=== PATIENT | female | born 1960 | race Caucasian/White ===

== ENCOUNTER → 2017-02-06 | Outpatient (CLI) | payer OTHER ==
[~2017-02-06] MED LIST: XANAX0.25 MG PO; ZETIA10 MG PO
== END | disposition home or self-care (01) ==
LOC: MAMMO 07:54
DX: Z12.31 Encounter for screening mammogram for malignant neoplasm of breast (principal)

== ENCOUNTER → 2017-02-26 | Outpatient (CLI) | payer OTHER | END | disposition home or self-care (01) | LOC: MAMMO 12:39 | DX: R92.1 Mammographic calcification found on diagnostic imaging of breast (principal) ==

== ENCOUNTER → 2017-04-26 | Day surgery (SDC) | payer OTHER ==
[~2017-04-26] MED LIST changes: +ZOCOR10 MG PO
--- NOTE | ~2017-04-26 | PROC NOTE ---
[place], [place] PROCEDURE NOTE NAME: DUNCAN BOLTON UNIT #: [id number] ROOM: DOCTOR: GERONIMO GARCIA MD BIRTHDATE: [birth year] DOS: 04/26/2017 PREOPERATIVE DIAGNOSIS: Migrated right breast marker. POSTOPERATIVE DIAGNOSIS: Migrated right breast marker. PROCEDURE: Excision of right breast foreign body (marker). SURGEON: Geronimo Garcia MD PORTABLE PINCH RIVETER: RITA. ANESTHESIA: Local (5 mL of 1% plain lidocaine). INDICATIONS: This is a 57-year-old lady who recently approximately 2 months ago had a mammogram and a marker placed, which seems to have migrated just below her skin at approximately 11-12 o'clock position on the right breast in the mid upper quadrant. She desires excision. The procedure and its complications were explained to the patient in detail preoperatively. Complications that were discussed included but were not limited to bleeding, infection, and hematomas formation. She agreed to proceed. DESCRIPTION OF PROCEDURE: After identifying the patient, the patient was brought to the operating suite and laid in the supine position. After time-out procedure was called, the parts were painted and draped in the usual sterile fashion. Local anesthesia was infiltrated around the area of the marker that was being felt right under the skin. Approximately 5 mL of 1% plain lidocaine was injected in an elliptical fashion. An incision was made around the previous marker site and this was excised in its entirety and sent for histopathological diagnosis. Upon further probing the wound, there was no obvious foreign body that could be seen or felt. At this point, hemostasis was achieved with the help of pressure and by approximating the subcutaneous tissue with the help of 3-0 Vicryl in an interrupted fashion, the skin edges were approximated with the help of 4-0 Vicryl in a subcuticular fashion. Dressing was placed. The patient tolerated the procedure well and was brought back to the recovery room in stable fashion. There were no complications. Dr. Geronimo Garcia, the attending surgeon, was present throughout the operating case. [place], [place] PROCEDURE NOTE NAME: DUNCAN BOLTON UNIT #: [id number] ROOM: DOCTOR: GERONIMO GARCIA MD BIRTHDATE: [birth year] Geronimo Garcia MD CM:PHILIPP:PROCEDURE NOTE 3 2 GERONIMO GARCIA MD
[2017-04-26 07:34] VITALS: BP 124/69
[2017-04-26 07:50] VITALS: BP 148/86
[2017-04-26 08:00] VITALS: BP 126/77
== END | disposition home or self-care (01) ==
LOC: SDC 04-25 13:15
DX: T85.42XA Displacement of breast prosthesis and implant, initial encounter (principal); E78.00 Pure hypercholesterolemia, unspecified; G47.30 Sleep apnea, unspecified; Z90.710 Acquired absence of both cervix and uterus; Y83.8 Other surgical procedures as the cause of abnormal reaction of the patient, or of later complication, without mention of misadventure at the time of the procedure; Y92.89 Other specified places as the place of occurrence of the external cause

== ENCOUNTER → 2017-10-23 | Outpatient (CLI) | payer OTHER ==
[2017-10-23 08:00] LABS: BASO # 0.1 10*3/uL (0.0-0.1); BASO % 1.2 % (0.0-1.0); EOS # 0.1 10*3/uL (0.0-0.4); EOS % 1.2 % (1.0-4.0); HEMATOCRIT 40.6 % (37.0-47.0); HEMOGLOBIN 13.6 g/dl (12.0-16.0); LYMPH # 1.4 10*3/uL (1.3-4.4); LYMPH % 33.9 % (27.0-41.0); MEAN CELL VOLUME 89.8 fl (81.0-99.0); MEAN CORPUSCULAR HGB 30.1 pg (27.0-31.0); MEAN CORPUSCULAR HGB CONC 33.5 g/dl (33.0-37.0); MEAN PLATELET VOLUME 9.8 fl (9.6-12.3); MONO # 0.3 10*3/uL (0.1-1.0); MONO % 7.2 % (3.0-9.0); NEUT # 2.3 10*3/uL (2.3-7.9); NEUT % 56.3 % (47.0-73.0); PLATELET COUNT AUTOMATED 311 10*3/uL (130-400); RED BLOOD COUNT 4.52 10*6/uL (4.10-5.10); RED CELL DISTRI WIDTH 12.9 % (0-14.5); WHITE BLOOD COUNT 4.2 10*3/uL (4.8-10.8)
[2017-10-23 08:26] LABS: ALBUMIN 3.9 gm/dl (3.1-4.5); BUN 18 mg/dl (7-24); CHLORIDE 105 mmol/L (98-107); CHOLESTEROL 269 mg/dL (<200); CREATININE 0.75 mg/dL (0.55-1.02); HDL CHOLESTEROL 61 mg/dl (40-60); LDL CHOLESTEROL 178 mg/dL (9-159); POTASSIUM 4.2 mmol/L (3.5-5.1); SGOT/AST 33 IU/L (3-35); SGPT/ALT 60 U/L (12-78); SODIUM 141 mmol/L (136-145); TOTAL PROTEIN 7.7 gm/dL (6.4-8.2); TRIGLYCERIDES 151 mg/dl (<150); VLDL CHOLESTEROL 30 mg/dL (6-40)
[2017-10-23 08:36] LABS: ALKALINE PHOSPHATASE 61 U/L (45-117); THYROID STIM HORMONE (HS) 0.833 uIU/ml (0.358-4.75)
== END | disposition home or self-care (01) ==
LOC: LAB 07:17
PROVIDERS: Internal Medicine Cardiovascular Disease
DX: I49.3 Ventricular premature depolarization (principal); R00.2 Palpitations; E04.1 Nontoxic single thyroid nodule; R07.89 Other chest pain

== ENCOUNTER → 2017-11-06 | Outpatient (CLI) | payer OTHER | END | disposition home or self-care (01) | LOC: RESCLI 03:38 | DX: E78.2 Mixed hyperlipidemia (principal); K63.5 Polyp of colon; F41.9 Anxiety disorder, unspecified; R00.2 Palpitations; Z76.89 Persons encountering health services in other specified circumstances; Z90.710 Acquired absence of both cervix and uterus ==

== ENCOUNTER → 2018-01-24 | Outpatient (CLI) | payer OTHER ==
[2018-01-24 08:40] LABS: CHOLESTEROL 307 mg/dL (<200); HDL CHOLESTEROL 67 mg/dl (40-60); LDL CHOLESTEROL 218 mg/dL (9-159); TRIGLYCERIDES 112 mg/dl (<150); VLDL CHOLESTEROL 22 mg/dL (6-40)
== END | disposition home or self-care (01) ==
LOC: LAB 07:20
PROVIDERS: Internal Medicine
DX: E78.2 Mixed hyperlipidemia (principal)

== ENCOUNTER → 2018-04-28 | Outpatient (CLI) | payer OTHER | END | disposition home or self-care (01) | DX: R06.02 Shortness of breath (principal) ==

== ENCOUNTER → 2018-05-29 | Outpatient (CLI) | payer OTHER | END | disposition home or self-care (01) | LOC: MAMMO 07:08 | DX: Z12.31 Encounter for screening mammogram for malignant neoplasm of breast (principal) ==

== ENCOUNTER → 2019-01-27 | Outpatient (CLI) | payer OTHER ==
[2019-01-27 09:14] LABS: BASO # 0.1 10*3/uL (0.0-0.1); BASO % 1.1 % (0.0-1.0); EOS # 0.1 10*3/uL (0.0-0.4); EOS % 1.1 % (1.0-4.0); HEMATOCRIT 38.3 % (37.0-47.0); HEMOGLOBIN 13.1 g/dl (12.0-16.0); LYMPH # 1.6 10*3/uL (1.3-4.4); LYMPH % 34.7 % (27.0-41.0); MEAN CELL VOLUME 88.5 fl (81.0-99.0); MEAN CORPUSCULAR HGB 30.3 pg (27.0-31.0); MEAN CORPUSCULAR HGB CONC 34.2 g/dl (33.0-37.0); MEAN PLATELET VOLUME 9.7 fl (9.6-12.3); MONO # 0.4 10*3/uL (0.1-1.0); MONO % 7.6 % (3.0-9.0); NEUT # 2.6 10*3/uL (2.3-7.9); NEUT % 55.3 % (47.0-73.0); PLATELET COUNT AUTOMATED 296 10*3/uL (130-400); RED BLOOD COUNT 4.33 10*6/uL (4.10-5.10); RED CELL DISTRI WIDTH 12.6 % (0-14.5); WHITE BLOOD COUNT 4.6 10*3/uL (4.8-10.8)
[2019-01-27 09:42] LABS: ALBUMIN 3.7 gm/dl (3.1-4.5); BUN 13 mg/dl (7-24); CHLORIDE 106 mmol/L (98-107); CHOLESTEROL 299 mg/dL (<200); CREATININE 0.68 mg/dL (0.55-1.02); HDL CHOLESTEROL 56 mg/dl (40-60); LDL CHOLESTEROL 206 mg/dL (9-159); SGOT/AST 21 IU/L (3-35); SGPT/ALT 51 U/L (12-78); SODIUM 140 mmol/L (136-145); TOTAL PROTEIN 7.3 gm/dL (6.4-8.2); TRIGLYCERIDES 184 mg/dl (<150); VLDL CHOLESTEROL 37 mg/dL (6-40)
[2019-01-27 09:52] LABS: ALKALINE PHOSPHATASE 65 U/L (45-117)
== END | disposition home or self-care (01) ==
LOC: LAB 08:41
PROVIDERS: Family Medicine
DX: E78.5 Hyperlipidemia, unspecified (principal); R53.83 Other fatigue

== ENCOUNTER → 2019-02-19 | Outpatient (CLI) | payer OTHER ==
--- NOTE | ~2019-02-19 | PF ---
[place], [place] PULMONARY FUNCTION TEST NAME: DUNCAN BOLTON UNIT #: [id number] ROOM: DOCTOR: ROSETTA GUSTAFSON MD,CARMEN BIRTHDATE: [birth year] DOS: 02/19/2019 ORDERED BY: Dr. Fox Birch. HISTORY: This patient was recorded as 58-year-old female, height of 67 inches, weight of 188 pounds, BMI 29.4. Testing was done for the patient's assessment of symptoms of shortness of breath with exertion. The patient noted tobacco use 1 pack of cigarettes per day for 25 years, discontinued 14 years ago. SPIROMETRY: The FVC ____ liters, 108% predicted value, FEV1 2.86 liters, 101% predicted value. Ratio of FEV1/FVC recorded 77%. Flow volume loop was normal. Postbronchodilator, no changes were noted. LUNG VOLUME: Thoracic gas volume recorded as 87%, residual volume 97%, total lung capacity 98%. The patient's airway resistance and passive conductance normal. The patient's lung diffusion noted mildly decreased. FINAL IMPRESSION: Evidence of a very mild reduction of the lung diffusion noted, to be correlated with the patient's clinical history and radiology data. Otherwise, the pulmonary function tests were noted completely normal. CARMEN SARGENT MD CM:PFREPORT:PULMONARY FUNCTION TEST [id number] CARMEN GUSTAFSON MD
== END | disposition home or self-care (01) ==
LOC: CP 14:27
DX: R06.00 Dyspnea, unspecified (principal); Z87.891 Personal history of nicotine dependence

== ENCOUNTER → 2019-04-23 | Outpatient (CLI) | payer OTHER | END | disposition home or self-care (01) | LOC: RAD 09:18 | DX: M79.672 Pain in left foot (principal); W18.31XA Fall on same level due to stepping on an object, initial encounter ==

== ENCOUNTER → 2019-06-04 | Outpatient (CLI) | payer OTHER | END | disposition home or self-care (01) | LOC: US 10:27 | DX: N64.4 Mastodynia (principal) ==

== ENCOUNTER → 2019-06-18 | Outpatient (CLI) | payer OTHER | END | disposition home or self-care (01) | LOC: MAMMO 06-11 10:00 | DX: N64.4 Mastodynia (principal) ==

== ENCOUNTER → 2019-06-30 | Outpatient (CLI) | payer OTHER | END | disposition home or self-care (01) | LOC: RESCLI 10:25 | DX: M54.41 Lumbago with sciatica, right side (principal); E66.3 Overweight; E04.1 Nontoxic single thyroid nodule; F41.9 Anxiety disorder, unspecified; Z90.710 Acquired absence of both cervix and uterus; Z90.89 Acquired absence of other organs ==

== ENCOUNTER → 2019-07-10 | Outpatient (CLI) | payer OTHER | END | disposition home or self-care (01) | LOC: US 13:12 | DX: E04.1 Nontoxic single thyroid nodule (principal) ==

== ENCOUNTER → 2019-07-28 | Outpatient (CLI) | payer OTHER ==
[2019-07-28 09:39] LABS: ALBUMIN 3.7 gm/dl (3.1-4.5); ALKALINE PHOSPHATASE 63 U/L (45-117); BUN 15 mg/dl (7-24); CHLORIDE 107 mmol/L (98-107); CREATININE 0.71 mg/dL (0.55-1.02); FREE T4 0.95 ng/dl (0.76-1.46); POTASSIUM 4.2 mmol/L (3.5-5.1); SGOT/AST 16 IU/L (3-35); SGPT/ALT 28 U/L (12-78); SODIUM 142 mmol/L (136-145); TOTAL PROTEIN 7.2 gm/dL (6.4-8.2)
[2019-07-29 06:05] LABS: THYROID PEROXIDASE (TPO) AB 9 IU/mL (0-34)
[2019-07-29 15:10] LABS: THYROGLOBULIN ANTIBODY <1.0 IU/mL (0.0-0.9)
== END | disposition home or self-care (01) ==
LOC: LAB 08:04
PROVIDERS: Internal Medicine Endocrinology, Diabetes & Metabolism
DX: E04.1 Nontoxic single thyroid nodule (principal); E55.9 Vitamin D deficiency, unspecified

== ENCOUNTER → 2019-11-23 | Outpatient (CLI) | payer OTHER ==
[2019-11-23 10:06] LABS: ALBUMIN 3.8 gm/dl (3.1-4.5); BUN 17 mg/dl (7-24); CHLORIDE 106 mmol/L (98-107); CHOLESTEROL 279 mg/dL (<200); CREATININE 0.69 mg/dL (0.55-1.02); SGOT/AST 44 IU/L (3-35); SGPT/ALT 101 U/L (12-78); SODIUM 140 mmol/L (136-145); TRIGLYCERIDES 229 mg/dl (<150); VLDL CHOLESTEROL 46 mg/dL (6-40)
[2019-11-23 10:13] LABS: ALKALINE PHOSPHATASE 70 U/L (45-117); FREE T4 1.02 ng/dl (0.76-1.46); HDL CHOLESTEROL 55 mg/dl (40-60); LDL CHOLESTEROL 178 mg/dL (9-159); THYROID STIM HORMONE (HS) 0.972 uIU/ml (0.358-4.75); TOTAL PROTEIN 7.6 gm/dL (6.4-8.2)
[2019-11-24 04:06] LABS: THYROID PEROXIDASE (TPO) AB <9 IU/mL (0-34)
[2019-11-24 15:10] LABS: LIPOPROTEIN A 12.9 nmol/L (<75.0); THYROGLOBULIN ANTIBODY <1.0 IU/mL (0.0-0.9)
[2019-11-25 08:08] LABS: APOLIPOPROTEIN B 132 mg/dL (<90)
== END | disposition home or self-care (01) ==
LOC: LAB 08:54
PROVIDERS: Internal Medicine Endocrinology, Diabetes & Metabolism
DX: E04.1 Nontoxic single thyroid nodule (principal); E55.9 Vitamin D deficiency, unspecified; E78.2 Mixed hyperlipidemia; R63.5 Abnormal weight gain

== ENCOUNTER → 2020-01-15 | Outpatient (CLI) | payer OTHER | END | disposition home or self-care (01) | LOC: US 08:28 | PROVIDERS: ATTEND Nurse Practitioner Primary Care | DX: K80.20 Calculus of gallbladder without cholecystitis without obstruction (principal); Z90.710 Acquired absence of both cervix and uterus ==

== ENCOUNTER → 2020-01-28 | Outpatient (CLI) | payer OTHER ==
[2020-01-28 14:20] LABS: ALBUMIN 3.9 gm/dl (3.1-4.5); BUN 17 mg/dl (7-24); CHLORIDE 105 mmol/L (98-107); CREATININE 0.93 mg/dL (0.55-1.02); POTASSIUM 3.7 mmol/L (3.5-5.1); SGOT/AST 16 IU/L (3-35); SGPT/ALT 34 U/L (12-78); SODIUM 140 mmol/L (136-145)
[2020-01-28 14:21] LABS: ALKALINE PHOSPHATASE 59 U/L (45-117); TOTAL PROTEIN 7.3 gm/dL (6.4-8.2)
== END | disposition home or self-care (01) ==
LOC: LAB 13:16
PROVIDERS: ATTEND Nurse Practitioner Primary Care
DX: N28.89 Other specified disorders of kidney and ureter (principal)

== ENCOUNTER → 2020-02-03 | Outpatient (CLI) | payer OTHER | END | disposition home or self-care (01) | LOC: MRI 00:54 | PROVIDERS: ATTEND Nurse Practitioner Primary Care | DX: K80.20 Calculus of gallbladder without cholecystitis without obstruction (principal); N28.89 Other specified disorders of kidney and ureter ==

== ENCOUNTER → 2020-03-17 | Outpatient (CLI) | payer OTHER ==
[2020-03-17 09:33] LABS: ALKALINE PHOSPHATASE 66 U/L (45-117); BUN 19 mg/dl (7-24); CHLORIDE 107 mmol/L (98-107); CHOLESTEROL 203 mg/dL (<200); CREATININE 0.73 mg/dL (0.55-1.02); FREE T4 1.18 ng/dl (0.76-1.46); HDL CHOLESTEROL 72 mg/dl (40-60); LDL CHOLESTEROL 112 mg/dL (9-159); POTASSIUM 4.2 mmol/L (3.5-5.1); SGOT/AST 28 IU/L (3-35); SGPT/ALT 50 U/L (12-78); SODIUM 141 mmol/L (136-145); TOTAL PROTEIN 8.1 gm/dL (6.4-8.2); TRIGLYCERIDES 94 mg/dl (<150); VLDL CHOLESTEROL 19 mg/dL (6-40)
[2020-03-18 05:06] LABS: THYROID PEROXIDASE (TPO) AB <9 IU/mL (0-34)
[2020-03-18 13:08] LABS: THYROGLOBULIN ANTIBODY <1.0 IU/mL (0.0-0.9)
[2020-03-18 14:10] LABS: LIPOPROTEIN A 9.2 nmol/L (<75.0)
[2020-03-19 06:08] LABS: APOLIPOPROTEIN B 106 mg/dL (<90)
== END | disposition home or self-care (01) ==
LOC: LAB 08:34
PROVIDERS: ATTEND Internal Medicine Endocrinology, Diabetes & Metabolism
DX: E04.1 Nontoxic single thyroid nodule (principal); E78.2 Mixed hyperlipidemia; R63.5 Abnormal weight gain; E55.9 Vitamin D deficiency, unspecified

== ENCOUNTER → 2020-07-28 | Outpatient (CLI) | payer OTHER | END | disposition home or self-care (01) | LOC: US 13:44 | PROVIDERS: ATTEND Nurse Practitioner Primary Care | DX: Z90.5 Acquired absence of kidney (principal) ==

== ENCOUNTER → 2020-09-06 | Outpatient (CLI) | payer OTHER | END | disposition home or self-care (01) | LOC: US 06:59 | PROVIDERS: ATTEND Internal Medicine Endocrinology, Diabetes & Metabolism | DX: E04.2 Nontoxic multinodular goiter (principal) ==

== ENCOUNTER → 2020-09-09 | Outpatient (CLI) | payer OTHER ==
[2020-09-09 09:27] LABS: BASO # 0.1 10*3/uL (0.0-0.1); BASO % 1.1 % (0.0-1.0); EOS # 0.1 10*3/uL (0.0-0.4); EOS % 2.7 % (1.0-4.0); HEMATOCRIT 40.2 % (37.0-47.0); LYMPH # 1.6 10*3/uL (1.3-4.4); MEAN CELL VOLUME 89.7 fl (81.0-99.0); MEAN CORPUSCULAR HGB CONC 32.3 g/dl (33.0-37.0); MEAN PLATELET VOLUME 9.4 fl (9.6-12.3); MONO # 0.2 10*3/uL (0.1-1.0); MONO % 5.2 % (3.0-9.0); NEUT # 2.5 10*3/uL (2.3-7.9); PLATELET COUNT AUTOMATED 304 10*3/uL (130-400); RED BLOOD COUNT 4.48 10*6/uL (4.10-5.10); RED CELL DISTRI WIDTH 12.5 % (0-14.5); WHITE BLOOD COUNT 4.5 10*3/uL (4.8-10.8)
[2020-09-09 09:55] LABS: ALBUMIN 3.8 gm/dl (3.1-4.5); CREATININE 1.17 mg/dL (0.55-1.02); POTASSIUM 4.5 mmol/L (3.5-5.1)
[2020-09-09 09:58] LABS: TOTAL PROTEIN 7.8 gm/dL (6.4-8.2)
[2020-09-11 15:06] LABS: APOLIPOPROTEIN B 120 mg/dL (<90)
[2020-09-12 15:06] LABS: LIPOPROTEIN A <8.4 nmol/L (<75.0)
== END | disposition home or self-care (01) ==
LOC: LAB 09:01
PROVIDERS: Family Medicine; ATTEND Internal Medicine Endocrinology, Diabetes & Metabolism
DX: E55.9 Vitamin D deficiency, unspecified (principal); E78.01 Familial hypercholesterolemia

== ENCOUNTER → 2020-10-03 | Day surgery (SDC) | payer OTHER ==
[~2020-10-03] VITALS: Ht 170.1 cm; Wt 78.9 kg
[~2020-10-03] MED LIST changes: +CALCIUM500 M1 PO; +CARAFATE1 G1 PO; +LINZESS145 MC1 PO; +PROTONIX40 MG PO; +VITAMIN D350 MCG PO
[2020-10-03 09:52] VITALS: BP 117/55
[2020-10-03 10:36] VITALS: BP 117/65
[2020-10-03 10:50] VITALS: BP 108/57
[2020-10-03 11:05] VITALS: BP 124/64
== END | disposition home or self-care (01) ==
LOC: SDC 09-30 09:30
PROVIDERS: ATTEND Surgery
DX: R13.10 Dysphagia, unspecified (principal); K29.50 Unspecified chronic gastritis without bleeding; K21.9 Gastro-esophageal reflux disease without esophagitis; Z90.710 Acquired absence of both cervix and uterus; Z98.890 Other specified postprocedural states; Z87.891 Personal history of nicotine dependence